=== PATIENT | male | born 1965 | race American Indian/Alaskan Native ===

== ENCOUNTER 2018-04-11 16:59 | Emergency (ER) | payer MEDICAID ==
[2018-04-11 17:14] VITALS: BMI 32.4
[2018-04-11 17:47] VITALS: BP 112/72; PULSE 91; RESP 18; TEMP 97.4; O2SAT 100
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
== END 2018-04-11 20:02 | disposition home or self-care (01) ==
LOC: C.ER 16:59
DX: S09.90XA Unspecified injury of head, initial encounter (principal); S82.451A Displaced comminuted fracture of shaft of right fibula, initial encounter for closed fracture; V19.9XXA Pedal cyclist (driver) (passenger) injured in unspecified traffic accident, initial encounter